=== PATIENT | female | born 2005 | race Caucasian/White ===

== ENCOUNTER → 2023-02-02 10:37 | Outpatient (BNVA) | payer MEDICAID, SELFPAY | PROVIDERS: Visit Provider Nurse Practitioner Women's Health | DX: R30.0 Dysuria (principal) | CPT/HCPCS: 81000; 87086 ==

== ENCOUNTER 2023-08-26 02:30 | Emergency (ER) | payer MEDICAID, SELFPAY ==
[2023-08-26 02:36] VITALS: BP 126/80; PULSE 109; RESP 14; TEMP 36.6; O2SAT 97
--- NOTE | 2023-08-26 02:55 | XRR_ITS ---
PROCEDURE INFORMATION: Exam: XR Left Ribs with PA Chest Exam date and time: 08/26/2023 2:57 AM Age: 17 years old Clinical indication: Injury or trauma; Rib area, left side; Blunt trauma; Patient HX: Patient sustained a fall yesterday. C/O left anerior rib pain the sterno costal junction at level of xiphoid. ; Additional info: Fell hit left anterior cartilage/rib junct, pain, deforormity TECHNIQUE: Imaging protocol: Radiologic exam of the left ribs with PA chest. Views: 3 views COMPARISON: No relevant prior studies available. FINDINGS: Lungs: Unremarkable. No consolidation. Pleural spaces: Unremarkable. No pleural effusion. No pneumothorax. Heart/Mediastinum: Unremarkable. No cardiomegaly. Bones/joints: Unremarkable. XR/XR ribs LT mn 3V w CXR1V [id number] IMPRESSION: No acute findings.
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
[2023-08-26 04:32] VITALS: BP 116/77; PULSE 93; RESP 14; O2SAT 92
== END 2023-08-26 04:33 | disposition home or self-care (01) ==
PROVIDERS: Emergency Provider Emergency Medicine; PCP Nurse Practitioner Family
DX: R07.89 Other chest pain (principal); S39.012A Strain of muscle, fascia and tendon of lower back, initial encounter; V92.06XA Drowning and submersion due to fall off (nonpowered) inflatable craft, initial encounter; Y93.16 Activity, rowing, canoeing, kayaking, rafting and tubing
CPT/HCPCS: 71101; 99283

== ENCOUNTER 2023-08-28 07:07 | Emergency (ER) | payer MEDICAID, SELFPAY ==
[2023-08-28 07:22] VITALS: BP 111/65; PULSE 83; TEMP 36.6; O2SAT 98; BMI 19.4
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
[2023-08-28 07:44] VITALS: BP 121/70; PULSE 92; RESP 16; O2SAT 96
== END 2023-08-28 07:47 | disposition home or self-care (01) ==
PROVIDERS: Emergency Provider Emergency Medicine; PCP Nurse Practitioner Family
DX: S39.012A Strain of muscle, fascia and tendon of lower back, initial encounter (principal); X58.XXXA Exposure to other specified factors, initial encounter; Y93.16 Activity, rowing, canoeing, kayaking, rafting and tubing
CPT/HCPCS: 99283

== ENCOUNTER 2024-06-10 19:59 | Emergency (ER) | payer MEDICAID, SELFPAY ==
[2024-06-10 20:15] VITALS: BP 108/68; PULSE 99; RESP 14; TEMP 36.8; O2SAT 97
--- NOTE | 2024-06-10 20:33 | XRR_ITS ---
PROCEDURE INFORMATION: Exam: XR Right Foot Exam date and time: 06/10/2024 9:09 PM Age: 18 years old Clinical indication: Injury or trauma; Other: Twisted RT foot TECHNIQUE: Imaging protocol: Radiologic exam of the right foot. Views: 3 or more views. COMPARISON: No relevant prior studies available. FINDINGS: Bones/joints: Normal. Soft tissues: Normal. XR/XR foot RT min 3V* [id number] IMPRESSION: No acute findings.
[2024-06-10 21:57] VITALS: BP 101/78; PULSE 88; RESP 16; O2SAT 100
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
== END 2024-06-10 22:20 | disposition home or self-care (01) ==
PROVIDERS: Emergency Provider Emergency Medicine; PCP Nurse Practitioner Family
DX: S93.401A Sprain of unspecified ligament of right ankle, initial encounter (principal); X58.XXXA Exposure to other specified factors, initial encounter
CPT/HCPCS: 73630; 99283